=== PATIENT | female | born 1970 | race Caucasian/White ===

== ENCOUNTER 2024-12-05 12:36 | Inpatient (IN) | payer BC, SELFPAY ==
[2024-12-05] VITALS (24 sets, daily range): BP systolic 84–114; BP diastolic 48–68; PULSE 76–100; BMI 21.6; BMI 23.3
[2024-12-05] MEDS: LR 1000 IV ×2 (02:40→14:05)
[2024-12-05 04:04] LABS: % Basophils 0.3 % (0-2); % Eosinophils 1.3 % (0-6); % Immature Granulocytes 0.3 % (0-0.5); % Lymphocytes 5.7 % (20.5-51.1); % Monocytes 6.7 % (1.7-9.3); % Neutrophils 85.7 % (42.2-75.2); Absolute Eosinophils 0.1 10^3/uL (0-0.7); Absolute Lymphocytes 0.4 10^3/uL (1.2-3.4); Absolute Monocytes 0.5 10^3/uL (0.1-0.6); Absolute Neutrophils 6.1 10^3/uL (1.4-6.5); Hematocrit 35.3 % (37.0-47.0); Mean Corpuscular Hgb 29.1 pg (27.0-31.0); Mean Corpuscular Volume 85.7 fL (81.0-99.0); Mean Platelet Volume 9.3 fL (7.4-10.4); Nucleated Red Blood Cells % 0 %; Platelet Count 229 10^3/uL (130-400); Red Blood Cell Count 4.12 10^6/uL (4.20-5.40); Red Cell Dist. Width 12.5 % (11.5-14.5); White Blood Cell Count 7.1 10^3/uL (4.8-10.8)
[2024-12-05] MEDS: NSS 1000 IV ×2 (04:21→06:42)
[2024-12-05] MEDS: ZOFRAN 4 MG IV (04:22)
[2024-12-05 04:25] LABS: ALT (SGPT) 14 U/L (0-35); AST (SGOT) 17 U/L (14-36); Albumin 3.8 g/dl (3.5-5.0); Alkaline Phosphatase 54 U/L (38-126); Blood Urea Nitrogen 25 mg/dl (7-17); Calcium 8.3 mg/dl (8.4-10.2); Carbon Dioxide 24 mmol/L (22-30); Chloride 105 mmol/L (98-107); Estimated Creatinine Clearance 73 ml/min; Glucose 106 mg/dl (70-99); Sodium 139 mmol/L (135-145); Total Bilirubin 0.8 mg/dl (0.2-1.3); eGFR > 60.00
[2024-12-05] MEDS: TYLENOL 650 MG PO (04:36)
--- NOTE | 2024-12-05 05:34 | ED.GENMED ---
History of Present Illness
<Madison Villagran DO - Last Filed: 12/05/24 05:38>
General
Chief Complaint: Abdominal Symptoms
Time Seen by Provider: 12/05/24 03:36
History of Present Illness
History of Present Illness:
54-year-old female without significant past medical history presenting to the emergency department for nausea, vomiting, diarrhea and syncope. Patient reports around 8 PM, had acute onset of violent vomiting and diarrhea. She had eaten Filipino
food prior to onset of symptoms and is unsure if that contributed to her symptoms. After forceful emesis, did have a syncopal episode. Medics were called by her son, who gave her Zofran with improvement of symptoms. Notes some abdominal cramping
with vomiting. Denies any prodromal chest pain or difficulty breathing. Denies any present chest pain or difficulty breathing. Denies fever or recent illness. Does report history of syncopal episode in the past. Denies additional medical
complaints
Phy Exam
<Madison Villagran DO - Last Filed: 12/05/24 05:38>
Physical Exam
Physical Exam:
General: Well-appearing, no clinical signs of dehydration, nontoxic and in no acute distress
HEENT: protecting airway
Neck: appears supple
CV: Normal heart rate, regular rhythm
Resp: No accessory muscle use, no increased work of breathing, lungs clear to auscultation bilaterally
Abd: Soft and non-distended, no tenderness to palpation
Extremities: No deformities, no swelling, no erythema
Neuro: alert, no focal neurologic deficit
: deferred
Rectal: deferred
Psych: Normal affect
Skin: Intact
Course
<Madison Villagran DO - Last Filed: 12/05/24 05:38>
Orders/Labs/Results
Orders:
Orders
12/05/24 03:44
EKG [Electrocardiogram (*1)] Urgent
Reason for Study: Abdominal Pain
EKG- Treatment ONCE
12/05/24 03:49
CMP [Comprehensive Metabolic Panel] Urgent
Complete Blood Count/With Diff Urgent
12/05/24 04:11
0.9% Sodium Chloride 1000 ml [Nss] 1,000 ml IV BOLUS
Ondansetron Injectable [Zofran] 4 mg IV NOW STA
12/05/24 04:35
Acetaminophen [Tylenol] 650 mg .ROUTE .STK-MED ONE
12/05/24 04:36
Acetaminophen [Tylenol] 650 mg PO NOW STA
12/05/24 06:38
0.9% Sodium Chloride 1000 ml [Nss] 1,000 ml IV BOLUS
Ketorolac [Toradol] 15 mg IV NOW STA
12/05/24 10:11
NSS 500mL Bolus over 30 minutes 0.9% Sodium Chloride 500 ml [Nss] 500 ml IV BOLUS
Abnormal Lab Results
12/05/24
03:49
RBC 4.12 L 10^6/uL
(4.20-5.40)
Hct 35.3 L %
(37.0-47.0)
Absolute Lymphs (auto) 0.4 L 10^3/uL
(1.2-3.4)
Neutrophils % 85.7 H %
(42.2-75.2)
Lymphocytes % 5.7 L %
(20.5-51.1)
BUN 25 H mg/dl
(7-17)
Glucose 106 H mg/dl
(70-99)
Calcium 8.3 L mg/dl
(8.4-10.2)
Total Protein 6.0 L g/dl
(6.3-8.2)
12/05/24 03:49
12/05/24 03:49
Vital Signs
Initial and Last Documented VS:
Initial Vital Signs
Temp Pulse Resp BP Pulse Ox
36.3 C 84 26 102/65 98
12/05/24 01:18 12/05/24 01:18 12/05/24 01:18 12/05/24 01:18 12/05/24 01:18
Last Documented Vital Signs
Temp Pulse Resp BP Pulse Ox
36.3 C 95 15 111/66 100
12/05/24 01:18 12/05/24 04:30 12/05/24 04:30 12/05/24 04:00 12/05/24 04:30
<Zev Frederick, DO - Last Filed: 12/05/24 10:13>
Orders/Labs/Results
Orders:
Orders
12/05/24 03:44
EKG [Electrocardiogram (*1)] Urgent
Reason for Study: Abdominal Pain
EKG- Treatment ONCE
12/05/24 03:49
CMP [Comprehensive Metabolic Panel] Urgent
Complete Blood Count/With Diff Urgent
12/05/24 04:11
0.9% Sodium Chloride 1000 ml [Nss] 1,000 ml IV BOLUS
Ondansetron Injectable [Zofran] 4 mg IV NOW STA
12/05/24 04:35
Acetaminophen [Tylenol] 650 mg .ROUTE .STK-MED ONE
12/05/24 04:36
Acetaminophen [Tylenol] 650 mg PO NOW STA
12/05/24 06:38
0.9% Sodium Chloride 1000 ml [Nss] 1,000 ml IV BOLUS
Ketorolac [Toradol] 15 mg IV NOW STA
12/05/24 10:11
NSS 500mL Bolus over 30 minutes 0.9% Sodium Chloride 500 ml [Nss] 500 ml IV BOLUS
Abnormal Lab Results
12/05/24
03:49
RBC 4.12 L 10^6/uL
(4.20-5.40)
Hct 35.3 L %
(37.0-47.0)
Absolute Lymphs (auto) 0.4 L 10^3/uL
(1.2-3.4)
Neutrophils % 85.7 H %
(42.2-75.2)
Lymphocytes % 5.7 L %
(20.5-51.1)
BUN 25 H mg/dl
(7-17)
Glucose 106 H mg/dl
(70-99)
Calcium 8.3 L mg/dl
(8.4-10.2)
Total Protein 6.0 L g/dl
(6.3-8.2)
12/05/24 03:49
12/05/24 03:49
Vital Signs
Initial and Last Documented VS:
Initial Vital Signs
Temp Pulse Resp BP Pulse Ox
36.3 C 84 26 102/65 98
12/05/24 01:18 12/05/24 01:18 12/05/24 01:18 12/05/24 01:18 12/05/24 01:18
Last Documented Vital Signs
Temp Pulse Resp BP Pulse Ox
36.3 C 95 15 111/66 100
12/05/24 01:18 12/05/24 04:30 12/05/24 04:30 12/05/24 04:00 12/05/24 04:30
<Madison Villagran, - Last Filed: 12/05/24 05:38>
MDM/Problems Addressed
MDM/Problems Addressed:
54-year-old female without significant past medical history presenting for nausea, vomiting, diarrhea and syncope. Vital signs on arrival are normal.
On exam, patient is resting comfortably, no acute distress or discomfort. She is afebrile, nontoxic. Symptom presentation and physical exam appears most consistent with foodborne gastroenteritis. Suspect syncopal episode or vasovagal etiology.
EKG obtained on arrival, sinus rhythm without acute evidence of ischemia, no arrhythmia. No focal neurologic deficits on exam. Will treat patient therapeutically with IV fluids and antiemetics with plan for screening laboratory analysis and
reassessment.
05:30 - Patient's labs relatively unremarkable. On reassessment, sleeping comfortably. Did tolerate p.o. Feel stable for discharge with continued outpatient supportive therapy. Return precautions discussed and patient verbalized understanding
<Madison Villagran DO - Last Filed: 12/05/24 05:38>
*EKG
Interpreted by ED Provider?: Yes
EKG Intrepretation Date: 12/05/24
EKG Intrepretation Time: 05:36
Interpretation: normal
Heart Rate: 90
Rate: normal
Rhythm: sinus
[place]: normal axis
Interval: normal interval
QRS Pattern: normal QRS
Ischemia: no ischemia
*Critical Care Note
Total Time (30-74mins, 75-104mins- exclusive of procedures): Not Applicable
<Zev Frederick, DO - Last Filed: 12/05/24 10:13>
Update Note
Update Note:
I evaluated the patient at bedside. Systolics remain around 90. Heart rate for me from a nearly supine to seated position stayed the same at 85. She states that she had a very large amount of vomiting and diarrhea. Her BUN to creatinine ratio
was elevated. She already received 3 L of fluid and will give an additional liter now. She still prefers to go home. She is a nurse practitioner. Minimal abdominal tenderness diffusely. Her white count is normal. Her renal function is normal.
ED Attending Note
<Madison Villagran DO - Last Filed: 12/05/24 05:38>
-
Portions of this chart may have been created with voice recognition software.� Occasional wrong word or��sound alike� substitutions may have occurred due to the inherent limitations of voice recognition software.
Discharge Plan
Departure
Patient Disposition: Home (Routine Discharge)
Date of Disposition: 12/05/24
Time of Disposition: 05:39
Patient with high blood pressure during this ER visit?: No
Condition: Good
Discharge Problem:
Gastroenteritis, Syncope and collapse
Instructions: Dehydration, Adult (DC), Nausea and Vomiting, Adult (DC), Syncope (fainting) - Discharge instructions
Prescriptions:
New
ondansetron 4 mg Tablet,Disintegrating
4 mg PO TIDPRN PRN (Reason: nausea/vomiting) Qty: 4 0RF
Referrals:
Gilberto Nguyen MD [Family Provider] -
Activity Restrictions/Additional Instructions:
You were seen in the emergency department for nausea, vomiting, diarrhea and a syncopal episode.
You were found to have normal blood work and EKG. We suspect that you had a foodborne gastroenteritis. Please continue to drink fluids as tolerated to stay hydrated.
Please follow-up closely with your primary care physician.
Return to the emergency department for any worsening of your symptoms, or any development of chest pain, difficulty breathing, abdominal pain with persistent vomiting and inability to tolerate food or liquid by mouth (concern for dehydration),
weakness, headache or confusion, fever greater than 100.4, or any additional symptoms that are concerning to you.
Thank you for choosing [facility].
Interventions
Interventions:
*Risk Screen - Suicide Last Done: 12/05/24 01:18
*General Assessment Last Done: 12/05/24 03:35
*Neglect/Abuse Screening Last Done: 12/05/24 01:18
ED- Fall Risk Assessment Last Done: 12/05/24 03:35
*ED COVID-19 Vaccine History Last Done: 12/05/24 03:35
ZD-Abcemr-Tfieoctjnh Assessment Last Done: 12/05/24 03:30
Discharge Date and Time
Print Language: LAO
[2024-12-05] MEDS: TORADOL 15 MG IV ×3 (06:44→20:12)
[2024-12-05] MEDS: NSS 500 IV (10:24)
--- NOTE | 2024-12-05 11:53 | HPS.HSE ---
Family Physician
-
Family Physician: Gilberto Nguyen
Chief Complaint
-
nausea/vomiting/diarrhea
History of Present Illness
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 Denies blood in stools/vomit. Patient reports being in her usual state of
health prior to dinner. ED eval notable for severe hypotension eventually resolved with reportedly total 4L of fluid bolus ([facility] Patient notes some improvement in symptoms with prn zofran, tylenol, and Toradol.
However symptoms, including general malaise, remain significant. Unable to tolerate oral diet at this time. Labs unremarkable.
Medical History
Past Medical History
Past Medical History: Reports Other (as above)
Past Surgical History: Reports Other (as above)
Social History
Tobacco: Non-smoker
Alcohol: Occasional
Drug: None
Personal:
Living: With Family
Employment: Employed
Family History
Family History: Not pertinent (reviewed)
Allergies / Home Medications
Allergies reflects when Allergies were last updated in [facility].
Home Medications with original date entered in [facility]
Allergy/Medication List:
Allergies
Allergy/AdvReac Type Severity Reaction Status Date / Time
MULTIPLE FRUITS Allergy Unknown Uncoded 12/05/24 01:21
Home Medications
ondansetron 4 mg disintegrating tablet 4 mg PO TIDPRN PRN nausea/vomiting #4 tabs 12/05/24
Review of Systems
-
A 12 point ROS was completed and negative except as noted: Yes
Constitutional: Reports Other (as below)
Physical Exam
Vital Signs
Vital Signs
Temp Pulse Resp BP Pulse Ox
97.4 F 92 17 99/57 99
12/05/24 01:18 12/05/24 11:45 12/05/24 11:45 12/05/24 11:30 12/05/24 11:45
Physical Exam
General: Other (as below)
Laboratory Results
-
12/05/24 03:49
12/05/24 03:49
Laboratory Results
Total Bilirubin 0.8 mg/dl (0.2-1.3) 12/05/24 03:49
AST 17 U/L (14-36) 12/05/24 03:49
ALT 14 U/L (0-35) 12/05/24 03:49
Alkaline Phosphatase 54 U/L (38-126) 12/05/24 03:49
Impression/Plan
-
ROS
General: reports chills general malaise body aches
Neuro: Denies seizure shaking loss of consciousness dizziness vertigo
Psych: denies depression hallucinations confusion manic episodes
Endocrine: Denies polyuria polydipsia polyphagia heat/cold intolerance
HEENT: Denies blindness visual disturbances epistaxis
Pulmonary: denies coughing hemoptysis sneezing sob dyspnea on exertion
Cardiovascular: denies chest pain palpitations leg swelling
Hematology: denies signs symptoms of anemia easy bruising/bleeding
Gastrointestinal: Nausea vomiting diarrhea
Genito-Urinary: denies retention incontinence dysuria
Musculoskeletal: reports joint pain weakness
Dermatology: denies rash laceration bruising
Physical Exam
General: No pallor, cyanosis, or jaundice.
HEENT: Throat clear. PERRLA Normocephalic atraumatic
NECK: Supple. No JVD Carotid Bruits
RESPIRATORY: Lungs clear to auscultation. No crackles wheezes stridor
CVS: S1, S2 normal. RRR. No murmur, rub or gallop.
ABDOMEN: Soft, tender. No distension. BS+/normal.
EXTREMITIES: No peripheral cyanosis or edema.
TECHNICIAN BIOLOGICAL HEALTH: AOx3. No focal deficits.
IMPRESSION:
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 Symptoms severe associate with hypotension since resolved with IVF boluses. Unable to tolerate oral diet. Admitted for further
evaluation/monitoring/IVF hydration/treatment
PLAN:
#Gastroenteritis 2/2 food poisoning
Med/surg admit
npo except meds, bowel rest, IVF hydration
prn Tylenol Toradol
K-pad back symptom relief general bodyaches/pain
monitor lytes and repletes as necessary
check stool studies, Cdiff, norovirus, culture
prn antiemetic compazine
bedside commode
dvt ppx scd
gi ppx protonix
full code
I spent a total of 75 minutes with the patient or on the floor. More than 50% of this time involved counseling and coordination of care.
[2024-12-05] MEDS: NSS (PRESERVATIVE FREE) 10 ML IV (14:05)
[2024-12-05] MEDS: PROTONIX IV 40 MG IV (14:06)
--- NOTE | 2024-12-05 16:30 | PTCARENOTE ---
Pt admitted from ED into room 421, ambulated from stretcher to bed. C/o of a 'pounding headache,' but refusing tylenol at this time. Pt informed she is not yet due for toradol. No c/o nausea at this time. Oriented to room and plan of care.
--- NOTE | 2024-12-06 03:38 | DOWNTIME ---
There was a [employer] Client Lab Pack Chemist Downtime on 12/06/2024 from 0100 to 12/06/2023 at 0235 . Downtime documentation of patient's care, including medication administrations, has been reconciled in the electronic record per guidelines. Refer to the
patient's paper chart under the miscellaneous tab to see printed paper medication records and downtime forms.
--- NOTE | 2024-12-06 06:53 | W.PN.HOSP.TC ---
Today's Communication/Plan
-
discharge
Assessment / Plan
Assessment / Plan
Physical Exam
General: No acute distress, appears comfortable
HEENT: Throat clear. PERRLA Normocephalic atraumatic
NECK: Supple. No JVD Carotid Bruits
RESPIRATORY: Lungs clear to auscultation. No crackles wheezes stridor
CVS: S1, S2 normal. RRR. No murmur, rub or gallop.
ABDOMEN: Soft, tender. No distension. BS+/normal.
EXTREMITIES: No peripheral cyanosis or edema.
CERAMICS ENGINEER: AOx3. No focal deficits.
IMPRESSION:
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 Symptoms severe associate with hypotension since resolved with IVF boluses. Unable to tolerate oral diet. Admitted for further
evaluation/monitoring/IVF hydration/treatment
PLAN:
#Gastroenteritis 2/2 food poisoning
Med/surg admit
improved following bowel rest, IVF hydration since completed
prn Tylenol Toradol
Diet gradually advanced to Low residue, tolerated well
stool studies ordered d/t reports of diarrhea prior to presentation, however diarrhea since resolved, studies subsequently canceled
Low normal Mg level
Mild Hypocalcemia
-repletion provided
Vit D deficiency
supplementation started
repeat Vit D lvl in 3 mo recommended
dvt ppx scd
gi ppx protonix
full code
Medically stable for discharge home with outpatient follow up recommendations
discussed with patient and RN
Total Time Preparing Discharge __40 minutes including examination of the patient, summary of the hospital stay, instructions for continuing care to all relevant caregivers; and preparation of discharge records, prescriptions, and referral
forms if necessary.
Anticipated Discharge: Today
Subjective/Interval History
-
Date of Service: December 06, 2024
Seen and examined at bedside in no acute distress resting comfortably in bed. Reports overall significant improvement in symptoms, tolerating full liquid diet, looking forward to going home.
Objective Data
-
Labs:
Laboratory Results
12/06/24
06:00
WBC Pending
Hgb Pending
Hct Pending
Plt Count Pending
Sodium Pending
Potassium Pending
Chloride Pending
Carbon Dioxide Pending
BUN Pending
Creatinine Pending
Glucose Pending
Calcium Pending
Vital Signs:
Vital Signs
Temp Pulse Resp BP Pulse Ox
99.7 F 77 14 86/52 97
12/05/24 23:35 12/05/24 23:35 12/05/24 23:35 12/05/24 23:35 12/05/24 23:35
[2024-12-06 07:00] VITALS: BP 94/61
[2024-12-06] MEDS: NSS (PRESERVATIVE FREE) 10 ML IV (07:22)
[2024-12-06] MEDS: PROTONIX IV 40 MG IV (07:22)
[2024-12-06] MEDS: OCEAN, SALINE MIST 1 SPRAYS NASAL (07:22)
[2024-12-06] MEDS: TYLENOL 650 MG PO (07:32)
[2024-12-06 08:38] LABS: Blood Urea Nitrogen 14 mg/dl (7-17); Calcium 7.9 mg/dl (8.4-10.2); Carbon Dioxide 21 mmol/L (22-30); Chloride 104 mmol/L (98-107); Estimated Creatinine Clearance 85 ml/min; Glucose 66 mg/dl (70-99); Magnesium 1.7 mg/dl (1.6-2.3); Phosphorus 3.7 mg/dl (2.5-4.5); Potassium 3.6 mmol/L (3.5-5.1); Sodium 133 mmol/L (135-145); eGFR > 60.00
[2024-12-06 09:05] LABS: Hemoglobin 10.6 g/dL (12.0-16.0); Mean Corp Hgb Conc. 33.1 g/dL (33.0-37.0); Mean Corpuscular Volume 87.7 fL (81.0-99.0); Mean Platelet Volume 9.9 fL (7.4-10.4); Platelet Count 165 10^3/uL (130-400); Red Blood Cell Count 3.65 10^6/uL (4.20-5.40); Red Cell Dist. Width 12.7 % (11.5-14.5); White Blood Cell Count 3.6 10^3/uL (4.8-10.8)
[2024-12-06 09:23] VITALS: BP 86/52
[2024-12-06] MEDS: NSS 500 IV (09:51)
[2024-12-06 10:57] VITALS: BP 90/58
--- NOTE | 2024-12-06 12:48 | CM ---
CM reviewed chart, patient seen bedside, initial assessment completed. Patient resides with her son in a three level home, two steps to enter. Patient denies use of DME, VN/SNF. Patient confirms PCP Gilberto Nguyen, pharmacy [facility], confirms
prescription coverage. Patient denies insecurities at home. Patient denies needs from CM at this time, will continue to follow for all discharge planning.
Plan; home no needs anticipated.
[2024-12-06 12:49] VITALS: BMI 23.3
[2024-12-06] MEDS: MAGNESIUM SULFATE 50 IV (12:52)
[2024-12-06] MEDS: CALCIUM GLUCONATE 100 IV (12:52)
[2024-12-06] MEDS: LR IV (13:12)
[2024-12-06 15:00] VITALS: BP 94/57
[2024-12-06 15:09] LABS: Vitamin D, 25-OH*** 15.6 ng/mL (30-80)
[2024-12-06 17:46] VITALS: BP 102/62
--- NOTE | 2024-12-06 18:08 | W.DCSUMMARY ---
Discharge Summary
Discharge Data
Date of Admission: 12/05/24
Date of Discharge: 12/06/24
-
Pending Results: No
Discharge Plan
-
Patient Disposition: Home (Routine Discharge)
Discharge Diagnosis/Procedures: Gastroenteritis likely due to Food Poisoning
Hypotension likely due to hypovolemia secondary to vomiting/diarrhea
Vitamin D deficiency
Condition: Fair
Diet: Low Residue
Additional Diets: Continue with low residue diet for 24 hours then advance as tolerated.
Activity: As tolerated
Driving Restrictions: As prior to admission
Bathing Restrictions: None
Blood Work: Repeat Vitamin D level with primary care provider in 3 months of discharge.
Activity Restrictions/Additional Instructions:
Follow up with primary care provider in 1 week of discharge.
Supplementation has been prescribed for Vitamin D deficiency.
Please take medications as prescribed and follow up with primary care provider and/or other healthcare provider involved in your care for refills and/or further adjustment to your medication regimen as necessary.
Referrals:
Gilberto Nguyen MD [Family Provider] - in one week
Prescriptions:
New
cholecalciferol (vitamin D3) 25 mcg (1,000 unit) Tablet
25 mcg PO DAILY Qty: 90 0RF
Continued
omeprazole 20 mg Tablet,Disintegrat, Delay Rel
20 mg PO DAILY
dextroamphetamine-amphetamine [Adderall XR] 30 mg Capsule,Extended Release 24hr
30 mg PO DAILY
Discharge Orders:
Discharge Patient (As Directed); Ordered 12/06/24
Ordered By: Ruth Conley
Discharge Date and Time
Print Language: WELSH
[2024-12-06] MEDS: VITAMIN D3 (cholecalciferol) 25 MCG PO (18:12)
[2024-12-06 19:15] VITALS: BP 107/68
== END 2024-12-06 20:00 | disposition home or self-care (01) | DRG 392 ==
LOC: 4 WEST ACU 12:36
PROVIDERS: ADMITTING PHYSICIAN Internal Medicine; EMERGENCY PHYSICIAN Student in an Organized Health Care Education/Training Program; FAMILY PHYSICIAN Family Medicine
DX: A05.9 Bacterial foodborne intoxication, unspecified (principal); E55.9 Vitamin D deficiency, unspecified; E86.1 Hypovolemia; R55 Syncope and collapse
CPT/HCPCS: 80048; 80053; 82306; 83735; 84100; 85025; 85027; 93005; 96361; 96374; 96375; 99285

== ENCOUNTER 2025-04-02 08:28 | Emergency (ER) | payer BC, SELFPAY ==
[2025-04-02 08:30] VITALS: BP 133/76
--- NOTE | 2025-04-02 08:49 | ED.GENMED ---
History of Present Illness
General
Chief Complaint: Abdominal Pain
Source: patient
Time Seen by Provider: 04/02/25 08:38
History of Present Illness
History of Present Illness:
This patient is a 55-year-old female presents emergency department with complaints of left lower quadrant pain that started yesterday, gradual in onset, and relatively mild. She thought it might be a 'gas bubble'. She went to bed and when she woke
up this morning the pain was significantly worse described as constant, left lower quadrant sometimes radiating around to the left flank. She denies associated nausea, vomiting, fever, chills, diarrhea, constipation, dysuria, urgency, frequency,
hematuria, vaginal bleeding or discharge. She denies chest pain or shortness of breath. She had a normal nonbloody bowel movement today. There are no exacerbating or relieving factors to her pain
Past History
Past History
ED Past Medical History: GERD and Other (ADHD)
ED Past Surgical History: Other (Hysterectomy, rectocele repair, nasal septum surgery)
Social History
Tobacco: Non-smoker
Alcohol: None
Drug: None
Personal:
Living: with family
Phy Exam
Physical Exam
Physical Exam:
GENERAL: Alert , very uncomfortable appearing
EYE: pupils equal and reactive
NECK: Supple, no significant adenopathy.
ENT: o/p clr, mmm.
CARDIAC: Regular rate and rhythm .
LUNGS: Clear breath sounds bilaterally, no acute respiratory distress, no wheezes/rales/rhonchi
ABDOMEN: Soft, without focal tenderness, no r/g, left-sided cvat
NEUROLOGICAL: Alert and oriented, no focal neuro deficits
SKIN: Warm and dry, skin intact.
MUSCULOSKELETAL: No edema, well perfused.
PSYCH: Normal and appropriate interaction.
Course
Orders/Labs/Results
Orders:
Orders
04/02/25 08:49
CT Abd/pel Without Iv Or Oral Urgent
Comment:
Reason For Exam: Left-sided pain
0.9% Sodium Chloride 1000 ml [Nss] 1,000 ml IV BOLUS
Ketorolac [Toradol] 15 mg IV NOW STA
04/02/25 08:57
Complete Blood Count/No Diff Urgent
Comprehensive Metabolic Panel Urgent
Lipase Urgent
04/02/25 09:35
Urinalysis Reflex To Culture Urgent
Date Specimen was Collected: 04/02/25
Time Specimen was Collected: 09:32
Urine Microscopic Reflex Cult Urgent
04/02/25 10:25
Morphine Sulfate 4 mg IV NOW STA
Abnormal Lab Results
04/02/25 04/02/25
08:57 09:35
BUN 20 H mg/dl
(7-17)
Urine Ketones 3+ A
(Negative)
Ur Occult Blood Reflex 4+ A
(Negative)
Urine RBC 90-100 A /HPF
(0-2)
Urine Albumin (Reflex) 2+ A
(Neg - Trace)
04/02/25 08:57
04/02/25 08:57
Vital Signs
Initial and Last Documented VS:
Initial Vital Signs
Temp Pulse Resp BP Pulse Ox
97.8 F 76 18 133/76 100
04/02/25 08:30 04/02/25 08:30 04/02/25 08:30 04/02/25 08:30 04/02/25 08:30
Last Documented Vital Signs
Temp Pulse Resp BP Pulse Ox
97.8 F 76 18 104/64 100
04/02/25 08:30 04/02/25 08:30 04/02/25 08:30 04/02/25 10:16 04/02/25 09:29
*Critical Care Note
Total Time (30-74mins, 75-104mins- exclusive of procedures): Not Applicable
Update Note
Update Note:
Patient presents to the Emergency Department with __abdominal/back pain on the left side
Number and Complexity of Problems Addressed at the Encounter
� Chronic conditions affecting care:
� Acute Exacerbation and/or Progression of Chronic Illness:
� Differential Diagnosis includes: But not limited to bowel obstruction, kidney stone, UTI, diverticulitis, etc. etc.
Amount and/or Complexity of Data to be Reviewed and Analyzed
� I performed an independent evaluation of and my interpretation is:
EKG:
CT:Mild left hydronephrosis secondary to 3 mm calculus in the distal left ureter. Nonobstructive right nephrolithiasis.
2. Mild wall thickening of the urinary bladder. This may be partially related to underdistention. Cystitis is a consideration.
3. Question mild colitis ascending colon as above.
Xrays:
Laboratory Studies: Unremarkable, no signs of infection noted on urinalysis, white blood cell count normal, no fever here
Other:
� Review of other/old records reveals:
� Clinical information was obtained by an independent historian:
� Prescriptions/Medications Considered but not given:
� Further testing considered but not performed:
Risk of Complications and/or Morbidity or Mortality of Patient Management
� Social determinants of health affecting care:
� Discussion with other providers (PCP, Hospitalists, Consultants, etc):
� Escalation of care including admission/observation vs risk of discharge considered: 9:31 AM pain significantly improved patient declines further pain medication, feels much better, awaiting further testing results. 11:00 AM
patient feeling remarkably better, declines further medication, long discussion regarding diagnosis, CT findings for which she was given a copy of the report, importance of follow-up and reasons to return to the ER.
ED Attending Note
-
Portions of this chart may have been created with voice recognition software.� Occasional wrong word or��sound alike� substitutions may have occurred due to the inherent limitations of voice recognition software.
Discharge Plan
Departure
Patient Disposition: Home (Routine Discharge)
Date of Disposition: 04/02/25
Time of Disposition: 10:57
Patient with high blood pressure during this ER visit?: Yes
Condition: Good
Discharge Problem:
Kidney stone
Instructions: Kidney Stones (DC), BLOOD PRESSURE
Prescriptions:
New
tamsulosin [Flomax] 0.4 mg capsule
0.4 mg PO DAILY Qty: 7 0RF
ondansetron HCl 4 mg tablet
4 mg PO Q8H 2 Days Qty: 6 0RF
oxycodone-acetaminophen [Percocet] 5-325 mg tablet
1 tab PO Q4HPRN PRN (Reason: pain) Qty: 14 0RF
No Action
omeprazole 20 mg Tablet,Disintegrat, Delay Rel
20 mg PO DAILY
dextroamphetamine-amphetamine [Adderall XR] 30 mg Capsule,Extended Release 24hr
30 mg PO DAILY
cholecalciferol (vitamin D3) 25 mcg (1,000 unit) Tablet
25 mcg PO DAILY Qty: 90 0RF
Referrals:
Timothy Whitaker MD [Active, Urology] - Next open appointment
Gilberto Nguyen MD [Family Provider, Family Practice]
Activity Restrictions/Additional Instructions:
YOU HAVE BEEN GIVEN A COPY OF YOUR CAT SCAN REPORT PLEASE FOLLOW-UP WITH YOUR DOCTOR REGARDING THIS. IF YOU DEVELOP FEVER, CHILLS, DIFFICULTY URINATING, PAIN WITH URINATION, PAIN THAT IS NOT WELL-CONTROLLED, VOMITING, GET WORSE, DO NOT GET BETTER,
OR OTHER WORRISOME SIGNS, PLEASE RETURN TO THE ER IMMEDIATELY!
Interventions
Interventions:
*Risk Screen - Suicide Last Done: 04/02/25 08:30
*General Assessment Last Done: 04/02/25 08:30
*ED- Fall Risk Assessment Last Done: 04/02/25 09:00
*ED COVID-19 Vaccine History Last Done: 04/02/25 09:00
*Nursing Disposition Last Done: 04/02/25 11:37
EF-Tmvqgr-Iognojxmcm Assessment Last Done: 04/02/25 09:00
Discharge Date and Time
Discharge Date/Time: 04/02/25 11:37
Print Language: [place]
[2025-04-02] MEDS: NSS 1000 IV (08:55)
[2025-04-02] MEDS: TORADOL 15 MG IV (08:56)
[2025-04-02 08:58] VITALS: BMI 21.9
[2025-04-02 09:00] VITALS: BP 124/86
[2025-04-02 09:04] LABS: Hematocrit 40.4 % (37.0-47.0); Hemoglobin 13.7 g/dL (12.0-16.0); Mean Corp Hgb Conc. 33.9 g/dL (33.0-37.0); Mean Corpuscular Hgb 28.7 pg (27.0-31.0); Mean Corpuscular Volume 84.5 fL (81.0-99.0); Mean Platelet Volume 9.5 fL (7.4-10.4); Platelet Count 270 10^3/uL (130-400); Red Blood Cell Count 4.78 10^6/uL (4.20-5.40); Red Cell Dist. Width 12.4 % (11.5-14.5); White Blood Cell Count 7.1 10^3/uL (4.8-10.8)
[2025-04-02 09:35] LABS: ALT (SGPT) 13 U/L (0-35); AST (SGOT) 19 U/L (14-36); Albumin 4.4 g/dl (3.5-5.0); Alkaline Phosphatase 48 U/L (38-126); Blood Urea Nitrogen 20 mg/dl (7-17); Calcium 9.6 mg/dl (8.4-10.2); Carbon Dioxide 27 mmol/L (22-30); Chloride 106 mmol/L (98-107); Estimated Creatinine Clearance 64 ml/min; Glucose 97 mg/dl (70-99); Lipase 150 U/L (23-300); Potassium 3.9 mmol/L (3.5-5.1); Sodium 142 mmol/L (135-145); Total Bilirubin 0.7 mg/dl (0.2-1.3); eGFR > 60.00
[2025-04-02 10:00] LABS: Urine Albumin 2+ (Neg - Trace); Urine Bilirubin Negative (Negative); Urine Character Clear (Clear); Urine Color Yellow; Urine Glucose Negative (Negative); Urine Ketone 3+ (Negative); Urine Leukocyte Negative (Negative); Urine Nitrite Negative (Negative); Urine Occult Blood 4+ (Negative); Urine Urobilinogen Negative (Neg - 1+); Urine pH 6.5 (5.0-9.0)
[2025-04-02 10:16] VITALS: BP 104/64
[2025-04-02 10:31] LABS: Urine Mucus Moderate
[2025-04-02 10:32] LABS: Urine Amorphous Seen; Urine Squamous Cell 16-20 /LPF (Few)
[2025-04-02 10:33] LABS: Urine Red Blood Cell 90-100 /HPF (0-2)
[2025-04-02 10:34] LABS: Urine White Cell 0-2 /HPF (0-5)
[2025-04-02] MEDS: MORPHINE SULFATE 4 MG IV (10:34)
== END 2025-04-02 11:37 | disposition home or self-care (01) ==
LOC: EMR 08:28
PROVIDERS: EMERGENCY PHYSICIAN Emergency Medicine; FAMILY PHYSICIAN Family Medicine
DX: N13.2 Hydronephrosis with renal and ureteral calculous obstruction (principal); R03.0 Elevated blood-pressure reading, without diagnosis of hypertension
CPT/HCPCS: 99285; 96374; 96375; 96361; 74176; 80053; 81003; 81015; 83690; 85027